=== PATIENT | female | born 1960 ===

== ENCOUNTER 2016-10-18 17:06 | Emergency (ER) | payer MEDICAID ==
[2016-10-18 17:07] VITALS: BMI 38.9
[2016-10-18 17:14] VITALS: RESP 16; TEMP 98.2; O2SAT 98
--- NOTE | 2016-10-18 17:42 | ED PDOC ---
Arrival/HPI - General Chief Complaint: Back Pain Time Seen by Provider: 10/18/16 17:29 Historian: Patient - History of Present Illness Narrative History of Present Illness (Text): 10/18/16 17:38 This 56 yo female with pmh htn, asthma, hyperlipedemia, presents to this ED c/o left lower back pain, associated with urinary frequency x 2 days. Denies trauma, fever, flank pain, urgency hematuria, /GI incontinence, urinary retention, saddle anesthesias, weakness, paresthesias, or vaginal discharge. Time/Duration: Other (2 days) Quality: Aching Context: Home Past Medical History - Provider Review Nursing Documentation Reviewed: Yes - Infectious Disease Hx of Infectious Diseases: None - Tetanus Immunization Tetanus Immunization: Unknown - Cardiac Hx KS: Yes Hx Hypertension: Yes - Pulmonary Hx Respiratory Disorders: Yes Hx Asthma: Yes Hx Bronchitis: Yes - Neurological Hx Neurological Disorder: No Hx Paralysis: No - HEENT Hx HEENT Disorder: Yes (GLASSES) - Renal Hx Renal Disorder: Yes Hx Kidney Stones: Yes - Endocrine/Metabolic Hx Endocrine Disorders: No - Hematological/Oncological Hx Blood Disorders: No - Integumentary Hx Dermatological Disorder: No - Musculoskeletal/Rheumatological Hx Musculoskeletal Disorders: Yes Hx Arthritis: Yes Hx Fractures: Yes (RIGHT ELBOW) - Gastrointestinal Hx Gastrointestinal Disorders: No - Genitourinary/Gynecological Hx Genitourinary Disorders: No - Psychiatric Hx Anxiety: Yes Hx Depression: Yes Hx Substance Use: No - Surgical History Hx Open Reduction Internal Fixation: Yes (RIGHT ELBOW) Hx Tubal Ligation: Yes Other/Comment: LIPOMA BACK - Anesthesia Hx Anesthesia: Yes - Suicidal Assessment Feels Threatened In Home Enviroment: No Family/Social History - Physician Review Nursing Documentation Reviewed: Yes Family/Social History: No Known Family HX Smoking Status: Never Smoked Hx Alcohol Use: No Hx Substance Use: No Hx Substance Use Treatment: No Allergies/Home Meds Allergies/Adverse Reactions: Allergies codeine Allergy (Verified 10/18/16 17:08) ITCHING Home Medications: Home Meds Medication Instructions Recorded Confirmed Risperidone [Risperdal] 2 mg PO DAILY 12/28/11 10/18/16 Valsartan [Diovan] 160 mg PO DAILY 12/28/11 10/18/16 Escitalopram Oxalate [Lexapro] 20 mg PO DAILY 09/13/13 05/03/17 Aspirin [Adult Low Dose Aspirin EC] 81 mg PO DAILY 08/09/15 10/18/16 Simvastatin [Simvastatin] 10 mg PO DAILY 08/09/15 10/18/16 Zolpidem [Ambien] 10 mg PO DAILY 08/09/15 10/18/16 Review of Systems - Review of Systems Constitutional: Normal. absent: Fatigue, Weight Change, Fevers Eyes: Normal ENT: Normal Respiratory: Normal Cardiovascular: Normal Gastrointestinal: Normal Genitourinary Female: Frequency. absent: Dysuria, Hematuria, Urine Output Changes, Vaginal Bleeding, Vaginal Discharge Musculoskeletal: Back Pain Skin: Normal Neurological: Normal Endocrine: Normal Hemo/Lymphatic: Normal Psychiatric: Normal Physical Exam Vital Signs Temp Pulse Resp BP Pulse Ox 10/18/16 18:57 87 16 140/80 98 10/18/16 17:11 98.2 F 90 16 143/82 98 Temperature: Afebrile Blood Pressure: Normal Pulse: Regular Respiratory Rate: Normal Appearance: Positive for: Well-Appearing, Non-Toxic, Comfortable Pain Distress: None Mental Status: Positive for: Alert and Oriented X 3 - Systems Exam Head: Present: Atraumatic, Normocephalic Pupils: Present: PERRL Extroacular Muscles: Present: EOMI Conjunctiva: Present: Normal Mouth: Present: Moist Mucous Membranes Neck: Present: Normal Range of Motion Respiratory/Chest: Present: Clear to Auscultation, Good Air Exchange. No: Respiratory Distress, Accessory Muscle Use Cardiovascular: Present: Regular Rate and Rhythm, Normal S1, S2. No: Murmurs Abdomen: Present: Normal Bowel Sounds. No: Tenderness, Distention, Peritoneal Signs Back: Present: Normal Inspection, Paraspinal Tenderness (Mild le). No: CVA Tenderness, Midline Tenderness, Pain with Leg Raise Upper Extremity: Present: Normal Inspection, Normal ROM, NORMAL PULSES, Neurovascularly Intact, Capillary Refill < 2s. No: Cyanosis, Edema Lower Extremity: Present: Normal Inspection, NORMAL PULSES, Normal ROM. No: Edema, CALF TENDERNESS Neurological: Present: GCS=15, CN II-XII Intact, Speech Normal Skin: Present: Warm, Dry, Normal Color. No: Rashes Psychiatric: Present: Alert, Oriented x 3, Normal Insight, Normal Concentration Medical Decision Making ED Course and Treatment: 10/18/16 18:23 Re-evaluation. Patient feels better. Discussed results and plan with patient who expresses understanding. All questions answered and there is agreement with the plan to discharge home with instructions. Patient stable for discharge. Return if symptoms persist or worsen. Re-evaluation Time: 18:23 Reassessment Condition: Re-examined, Improved - Lab Interpretations Microbiology Results: Microbiology Results 10/18/16 17:50 Urine Urine Culture - Final 10-50,000 CFU/ML. MULTIPLE SPECIES. PROBABLE CONTAMINATION. Lab Results: Lab Results 10/18/16 17:50: Urine Color Yellow, Urine Appearance Sl cloudy, Urine pH 7.0, Ur Specific Kirkman 1.020, Urine Protein Negative, Urine Glucose (UA) Negative, Urine Ketones Negative, Urine Blood Negative, Urine Nitrate Negative, Urine Bilirubin Negative, Urine Urobilinogen 0.2, Ur Leukocyte Esterase Small H, Urine RBC Negative, Urine WBC 2 - 5, Ur Epithelial Cells 6 - 8, Urine Bacteria Few I have reviewed the lab results: Yes Interpretation: Abnormal lab values (UTI) - Medication Orders Current Medication Orders: Discontinued Medications Ibuprofen (Motrin Tab) 400 mg PO STAT STA Stop: 10/18/16 18:13 Last Admin: 10/18/16 18:34 Dose: 400 mg Nitrofurantoin Macrocrystals (Macrobid) 100 mg PO STAT STA Stop: 10/18/16 18:13 Last Admin: 10/18/16 18:34 Dose: 100 mg Disposition/Present on Arrival - Present on Arrival Any Indicators Present on Arrival: No History of DVT/PE: No History of Uncontrolled Diabetes: No Urinary Catheter: No History of Decub. Ulcer: No History Surgical Site Infection Following: None - Disposition Have Diagnosis and Disposition been Completed?: Yes Diagnosis: Acute cystitis Disposition: HOME/ ROUTINE Disposition Time: 18:24 Patient Plan: Discharge Condition: GOOD Discharge Instructions (ExitCare): Urinary Tract Infection in Women (ED) Additional Instructions: Call private doctor for follow up visit in 1-2 days. Take medication as instructed. Return to emergency if symptoms worsen. Prescriptions: Nitrofurantoin Macrocrystals [Macrobid] 100 mg PO BID #14 cap Phenazopyridine HCl [Pyridium] 200 mg PO TID #6 tablet Referrals: Allen Acevedo MD [Primary Care Provider] - Follow up with primary Forms: WORK NOTE
[2016-10-18 18:03] LABS: URINE BILIRUBIN NEGATIVE (NEGATIVE); URINE BLOOD NEGATIVE (NEGATIVE); URINE GLUCOSE (UA) NEGATIVE (NEGATIVE); URINE KETONE NEGATIVE (NEGATIVE); URINE LEUKOCYTE ESTERASE SMALL Leu/uL (NEGATIVE); URINE PROTEIN NEGATIVE mg/dL (<30 mg/dL); URINE UROBILINOGEN 0.2 E.U./dL (<1 E.U./dL)
[2016-10-18 18:04] LABS: URINE APPEARANCE SL CLOUDY (CLEAR); URINE COLOR YELLOW (YELLOW)
[2016-10-18 18:09] LABS: URINE BACTERIA FEW (NEG); URINE RBC NEGATIVE /hpf (0-2)
[2016-10-18 18:57] VITALS: BP 140/80; PULSE 87
== END 2016-10-18 18:57 | disposition home or self-care (01) ==
LOC: ED 17:06
DX: N30.00 Acute cystitis without hematuria (principal); I10 Essential (primary) hypertension

== ENCOUNTER 2018-02-25 16:00 | Emergency (ER) | payer MEDICAID ==
[2018-02-25 16:09] VITALS: BMI 25.7
--- NOTE | 2018-02-25 16:20 | ED PDOC ---
Arrival/HPI - General Time Seen by Provider: 02/25/18 16:11 Historian: Patient - History of Present Illness Narrative History of Present Illness (Text): 02/25/18 16:13 58 y/o female, pmh including htn/hld/asthma, post menopausal, allergic to codeine, c/o chest pain x 2 hours. Pt. has chest pain x 2 hours, sudden onset , associated with nausea and vomiting, radiating to the neck region, no tearing sensation, no coughing, no abdominal pain, no dizziness, no other medical or psychological complaints. Past Medical History - Provider Review Nursing Documentation Reviewed: Yes - Infectious Disease Hx of Infectious Diseases: None - Tetanus Immunization Tetanus Immunization: Unknown - Cardiac Hx AK: Yes Hx Hypertension: Yes - Pulmonary Hx Respiratory Disorders: Yes Hx Asthma: Yes Hx Bronchitis: Yes - Neurological Hx Neurological Disorder: No Hx Paralysis: No - HEENT Hx HEENT Disorder: Yes (GLASSES) - Renal Hx Renal Disorder: Yes Hx Kidney Stones: Yes - Endocrine/Metabolic Hx Endocrine Disorders: No - Hematological/Oncological Hx Blood Disorders: No - Integumentary Hx Dermatological Disorder: No - Musculoskeletal/Rheumatological Hx Musculoskeletal Disorders: Yes Hx Arthritis: Yes Hx Fractures: Yes (RIGHT ELBOW) - Gastrointestinal Hx Gastrointestinal Disorders: No - Genitourinary/Gynecological Hx Genitourinary Disorders: No - Psychiatric Hx Anxiety: Yes Hx Depression: Yes Hx Substance Use: No - Surgical History Hx Open Reduction Internal Fixation: Yes (RIGHT ELBOW) Hx Tubal Ligation: Yes Other/Comment: LIPOMA BACK - Anesthesia Hx Anesthesia: Yes - Suicidal Assessment Feels Threatened In Home Enviroment: No Family/Social History - Physician Review Nursing Documentation Reviewed: Yes Family/Social History: Unknown Family HX Smoking Status: Never Smoked Hx Alcohol Use: No Hx Substance Use: No Hx Substance Use Treatment: No Allergies/Home Meds Allergies/Adverse Reactions: Allergies codeine Allergy (Verified 02/25/18 16:08) ITCHING Home Medications: Home Meds Medication Instructions Recorded Confirmed Risperidone [Risperdal] 2 mg PO DAILY 12/28/11 10/18/16 Escitalopram Oxalate [Lexapro] 20 mg PO DAILY 02/28/13 10/18/16 Aspirin [Adult Low Dose Aspirin EC] 81 mg PO DAILY 08/09/15 10/18/16 Simvastatin 10 mg PO DAILY 08/09/15 10/18/16 Zolpidem [Ambien] 10 mg PO DAILY 08/09/15 10/18/16 Review of Systems - Review of Systems Constitutional: absent: Fatigue, Fevers Eyes: absent: Vision Changes ENT: absent: Hearing Changes Respiratory: absent: SOB, Cough Cardiovascular: Chest Pain Gastrointestinal: Nausea, Vomiting. absent: Abdominal Pain, Diarrhea Musculoskeletal: absent: Arthralgias, Back Pain Skin: absent: Rash, Pruritis Neurological: absent: Headache, Dizziness Psychiatric: absent: Anxiety, Depression, Suicidal Ideation Physical Exam Vital Signs Reviewed: Yes Vital Signs Temp Pulse Resp BP Pulse Ox 02/26/18 14:34 98.5 F 82 20 139/78 99 02/26/18 08:33 98.0 F 81 12 137/65 100 02/26/18 08:17 63 16 137/65 100 02/26/18 05:59 62 18 135/85 100 02/25/18 23:30 71 18 126/68 100 02/25/18 19:42 70 18 136/77 100 02/25/18 17:23 75 20 139/77 100 02/25/18 16:10 98.9 F 74 18 157/79 H 100 Temperature: Afebrile Blood Pressure: Hypertensive Pulse: Regular Respiratory Rate: Normal Appearance: Positive for: Well-Appearing, Non-Toxic, Comfortable Pain Distress: Moderate Mental Status: Positive for: Alert and Oriented X 3 - Systems Exam Head: Present: Atraumatic, Normocephalic Pupils: Present: PERRL Extroacular Muscles: Present: EOMI Conjunctiva: Present: Normal Ears: Present: NORMAL TM, Normal Canal. No: Erythema Mouth: Present: Moist Mucous Membranes Nose (External): Present: Atraumatic. No: Abrasion, Contusion, Laceration Nose (Internal): Present: Normal Inspection, No Active Bleeding. No: Rhinorrhea , Septal Hematoma, Epistaxis Neck: Present: Normal Range of Motion Respiratory/Chest: Present: Clear to Auscultation, Good Air Exchange. No: Respiratory Distress, Accessory Muscle Use Cardiovascular: Present: Regular Rate and Rhythm, Normal S1, S2. No: Murmurs Abdomen: No: Tenderness, Distention, Peritoneal Signs, Rebound, Guarding Back: Present: Normal Inspection. No: CVA Tenderness, Midline Tenderness Upper Extremity: Present: Normal Inspection, Normal ROM, NORMAL PULSES, Neurovascularly Intact, Capillary Refill < 2s, Deformity. No: Cyanosis, Edema Lower Extremity: Present: Normal Inspection, NORMAL PULSES, Normal ROM, Neurovascularly Intact, Capillary Refill < 2 s. No: Edema, CALF TENDERNESS, Tenderness, Swelling, Deformity, Temperature Abnormalties Neurological: Present: GCS=15, CN II-XII Intact, Speech Normal, Motor Func Grossly Intact, Gait Normal, Memory Normal Skin: Present: Warm, Dry, Normal Color. No: Rashes Psychiatric: Present: Alert, Oriented x 3, Normal Insight, Normal Concentration Medical Decision Making ED Course and Treatment: 02/25/18 16:14 -Labs -EKG -Chest xray -IVF/aspirin/pepcid/zofran -Observe and reassess 02/25/18 18:29 -EKG: NSR @ 72 BPM, no ST elevation or depression, chronic T wave inversion on lead III, compared with previous ekg. -Chest xray show no active disease -Gallbladder sonogram show Limited examination due to habitus. Echogenic liver may be seen in setting of hepatic parenchymal disease or fatty infiltration. No gallstones. No gallbladder wall thickening or pericholecystic edema. Negative sonographic Reaves's sign as assessed by the agricultural sales representative. -Labs show no acute findings except potassium 5.2 (no tall t waves, kayaxlate 15gm po ordered) -BNP within normal limit -Troponin is negative for 1st set. -UA ordered and pending result -HEART score is 4 -All labs and radiology results discussed with the patient and family, recommend admission for observation for rule out ACS. -paging hospitalist for admission. 02/25/18 18:37 -I spoke to DR. Alfredo about this case, discussed about the labs/radiology results, agreed to admit this patient and would follow up on any pending labs and radiology studies, will admit the patient. - Lab Interpretations Lab Results: 02/26/18 05:15 02/26/18 05:15 Lab Results 02/26/18 08:30: TSH 3rd Generation 1.88 02/26/18 05:15: Triglycerides 163 H, Cholesterol 187, LDL Cholesterol Direct 103 , HDL Cholesterol 37 02/26/18 05:15: Sodium 142, Potassium 4.2, Chloride 105, Carbon Dioxide 31, Anion Gap 10, BUN 14, Creatinine 0.8, Est GFR ( Amer) > 60, Est GFR (Non- Af Amer) > 60, Random Glucose 95, Calcium 8.9, Phosphorus 3.4, Magnesium 2.2, Total Bilirubin 0.6, AST 34, ALT 29, Alkaline Phosphatase 93, Lactate Dehydrogenase 430, Total Creatine Kinase 59, Troponin I < 0.01, Total Protein 7.1, Albumin 3.8, Globulin 3.3, Albumin/Globulin Ratio 1.1 02/26/18 05:15: WBC 8.4 D, RBC 4.17, Hgb 12.5, Hct 39.4, MCV 94.5, MCH 30.0, MCHC 31.7, RDW 14.1, Plt Count 247, MPV 10.3 02/25/18 22:23: Lactate Dehydrogenase 458, Total Creatine Kinase 51, Troponin I < 0.01 02/25/18 17:05: WBC 11.0 D, RBC 4.03, Hgb 12.2, Hct 38.0, MCV 94.3, MCH 30.3, MCHC 32.1, RDW 13.9, Plt Count 249, MPV 10.7, Gran % 72.6 H, Lymph % (Auto) 19.3 L, Kingman % (Auto) 6.3 H, Eos % (Auto) 1.5, Baso % (Auto) 0.3, Gran # 7.97 H , Lymph # (Auto) 2.1, [place] # (Auto) 0.7 H, Eos # (Auto) 0.2, Baso # (Auto) 0.03 02/25/18 17:05: Sodium 139, Potassium 5.2 H, Chloride 102, Carbon Dioxide 30, Anion Gap 13, BUN 17, Creatinine 0.9, Est GFR ( Amer) > 60, Est GFR (Non- Af Amer) > 60, Random Glucose 153 H, Calcium 9.1, Magnesium 2.0, Total Bilirubin 0.5, AST 42 H, ALT 29, Alkaline Phosphatase 84, Lactate Dehydrogenase 562, Total Creatine Kinase 53, Troponin I < 0.01, NT-Pro-B Natriuret Pep 72.9, Total Protein 6.9, Albumin 3.8, Globulin 3.1, Albumin/Globulin Ratio 1.2, Lipase 73 I have reviewed the lab results: Yes - RAD Interpretation Radiology Orders: 02/25/18 16:21 GALL BLADDER [US] Stat 09/10/18 16:52 CHEST PORTABLE [RAD] Stat Chest xray: no active disease ------ Gallbladder sonogram: Date of service: 02/25/2018 HISTORY: chest/epigastric pain COMPARISON: None available TECHNIQUE: Sonographic evaluation of the right upper quadrant of the abdomen. FINDINGS: Examination markedly limited by habitus. LIVER: Measures 13.1 cm in length. Echogenic liver may be seen in setting of hepatic parenchymal disease or fatty infiltration. No focal hepatic mass identified. Main portal vein appears patent with normal directional flow. No intrahepatic bile duct dilatation. GALLBLADDER: No gallstones. No gallbladder wall thickening or pericholecystic edema. Negative sonographic Reaves's sign as assessed by the agricultural sales representative. COMMON BILE DUCT: Measures 4 mm. PANCREAS: Not well-visualized. RIGHT KIDNEY: Measures 9.7 x 4.0 x 5.2 cm. No obstructing calculus or hydronephrosis identified. AORTA: Limited visualization appears grossly unremarkable. IVC: Limited visualization appears grossly unremarkable. OTHER FINDINGS: None . IMPRESSION: Limited examination due to habitus. Echogenic liver may be seen in setting of hepatic parenchymal disease or fatty infiltration. Take Away Worker: Radiologist - EKG Interpretation EKG Interpretation (Text): 02/25/18 16:29 NSR @ 72 BPM, no ST elevation or depression, chronic T wave inversion on lead III, compared with previous ekg. Interpreted by ED Physician: Yes Type: 12 lead EKG Comparison: Com.w/previous EKG - Medication Orders Current Medication Orders: Discontinued Medications Aspirin (Aspirin) 325 mg PO STAT STA Stop: 02/25/18 16:22 Last Admin: 02/25/18 16:53 Dose: 325 mg Aspirin (Ecotrin) 81 mg PO DAILY [facility] Last Admin: 02/26/18 11:09 Dose: 81 mg Atorvastatin Calcium (Lipitor) 10 mg PO DIN [facility] Enoxaparin Sodium (Lovenox) 40 mg SC DAILY [facility] PRN Reason: Protocol Last Admin: 02/26/18 11:08 Dose: 40 mg Subcutaneous Administrations Document 02/26/18 11:08 SUDO (Rec: 02/26/18 11:08 [id number] Injection Site MAR Injection Site Right Abdomen Charges for Administration # of Subcutaneous Administrations 1 Escitalopram Oxalate (Lexapro) 20 mg PO DAILY [facility] Last Admin: 02/26/18 11:32 Dose: 20 mg Famotidine (Pepcid) 20 mg IVP STAT STA Stop: 02/25/18 18:05 Last Admin: 02/25/18 19:02 Dose: 20 mg IVP Administration Document 02/25/18 19:02 FER (Rec: 02/25/18 19:15 FER [id number]) Charges for Administration # of IVP Administrations 1 Sodium Chloride (Sodium Chloride 0.9%) 1,000 mls @ 100 mls/hr IV .Q10H [facility] Last Admin: 02/26/18 03:00 Dose: 100 mls/hr eMAR Start Stop Document 02/26/18 03:00 AD (Rec: 02/26/18 05:23 AD [id number]) Intravenous Solution Start Date 02/26/18 Start Time 03:00 Ibuprofen (Motrin Tab) 400 mg PO Q6H [facility] Stop: 02/26/18 23:01 Losartan Potassium (Cozaar) 100 mg PO DAILY [facility] Last Admin: 02/26/18 11:08 Dose: 100 mg Nitrofurantoin Macrocrystals (Macrobid) 100 mg PO BID [facility] PRN Reason: Protocol Last Admin: 02/26/18 11:00 Dose: 100 mg Ondansetron HCl (Zofran Inj) 4 mg IVP STAT STA Stop: 02/25/18 18:05 Last Admin: 02/25/18 19:03 Dose: 4 mg IVP Administration Document 02/25/18 19:03 FER (Rec: 02/25/18 19:15 FER [id number]) Charges for Administration # of IVP Administrations 1 Ondansetron HCl (Zofran Inj) 4 mg IVP Q4H PRN PRN Reason: Nausea/Vomiting Pantoprazole Sodium (Protonix Ec Tab) 40 mg PO 0600 [facility] Last Admin: 02/26/18 06:21 Dose: 40 mg Risperidone (Risperdal Tab) 2 mg PO DAILY [facility] Last Admin: 02/26/18 11:32 Dose: 2 mg Sodium Polystyrene Sulfonate (Kayexalate Susp) 15 gm PO STAT STA Stop: 02/25/18 18:04 Last Admin: 02/25/18 19:02 Dose: 15 gm - PA / GLOVE FINISHER / Resident Statement / has reviewed & agrees with the documentation as recorded. Disposition/Present on Arrival - Present on Arrival Any Indicators Present on Arrival: No History of DVT/PE: No History of Uncontrolled Diabetes: No Urinary Catheter: No History of Decub. Ulcer: No History Surgical Site Infection Following: None - Disposition Have Diagnosis and Disposition been Completed?: Yes Diagnosis: Chest pain Disposition: HOME/ ROUTINE Disposition Time: 18:30 Patient Plan: Admission, Observation, Telemetry Condition: STABLE Discharge Instructions (ExitCare): Chest Pain Additional Instructions: Pleas follow up with your PMD within one week of discharge Please follow up with your manager financial within 1-2 weeks of discharge to address your GI issues Please go to nearest emergency department if symptoms recur Prescriptions: Losartan [Cozaar] 100 mg PO DAILY #90 tab Referrals: PCP,NO [Primary Care Provider] - Forms: Let's Talk (Macedonian)
[2018-02-25] MEDS: Sodium Chloride 0.9% 1,000 ML IV SCH (16:55)
[2018-02-25 17:22] LABS: BASO # 0.03 K/mm3 (0.0-2.0); BASO % 0.3 % (0.0-3.0); EOS # 0.2 (0.0-0.7); EOS % 1.5 % (1.5-5.0); GRAN # 7.97 (1.4-6.5); GRAN % 72.6 % (50.0-68.0); HEMOGLOBIN 12.2 g/dL (12.0-16.0); LYMPH # 2.1 (1.2-3.4); LYMPH % 19.3 % (22.0-35.0); MEAN CELL VOLUME 94.3 fl (80.0-105.0); MEAN CORPUSCULAR HEMOGLOBIN 30.3 pg (25.0-35.0); MEAN CORPUSCULAR HGB CONC 32.1 g/dl (31.0-37.0); MEAN PLATELET VOLUME 10.7 fl (7.0-11.0); MONO # 0.7 (0.1-0.6); MONO % 6.3 % (1.0-6.0); RBC 4.03 10^6/uL (3.5-6.1); RED CELL DISTRIBUTION WIDTH 13.9 % (11.5-14.5)
[2018-02-25 17:29] LABS: ALB/GLOB RATIO 1.2 (1.1-1.8); ALBUMIN 3.8 g/dL (3.0-4.8); ALT/SGPT 29 U/L (7-56); AST/SGOT 42 U/L (14-36); BLOOD UREA NITROGEN 17 mg/dL (7-21); CALCIUM 9.1 mg/dL (8.4-10.5); GFR NON-AFRICAN AMERICAN > 60; LIPASE 73 U/L (23-300)
[2018-02-25 17:40] LABS: B-TYPE NATRIURETIC PEPTIDE 72.9 pg/mL (0-450); TROPONIN I < 0.01 ng/mL
[2018-02-25] MEDS ORDERED: Sod Polystyrene Sulf 15 gm/60 ml Susp PO STA (18:03)
--- NOTE | 2018-02-25 18:07 | US ---
Date of service: 02/25/2018 HISTORY: chest/epigastric pain COMPARISON: None available TECHNIQUE: Sonographic evaluation of the right upper quadrant of the abdomen. FINDINGS: Examination markedly limited by habitus. LIVER: Measures 13.1 cm in length. Echogenic liver may be seen in setting of hepatic parenchymal disease or fatty infiltration. No focal hepatic mass identified. Main portal vein appears patent with normal directional flow. No intrahepatic bile duct dilatation. GALLBLADDER: No gallstones. No gallbladder wall thickening or pericholecystic edema. Negative sonographic Reaves's sign as assessed by the dermatologist. COMMON BILE DUCT: Measures 4 mm. PANCREAS: Not well-visualized. RIGHT KIDNEY: Measures 9.7 x 4.0 x 5.2 cm. No obstructing calculus or hydronephrosis identified. AORTA: Limited visualization appears grossly unremarkable. IVC: Limited visualization appears grossly unremarkable. OTHER FINDINGS: None . IMPRESSION: Limited examination due to habitus. Echogenic liver may be seen in setting of hepatic parenchymal disease or fatty infiltration.
--- NOTE | 2018-02-25 18:29 | CARD ---
APPROVED REPORT Date of service: 02/25/2018 EKG Measurement Heart [id number] 130P5 [id number] <Conclusion> Normal sinus rhythm Normal ECG
--- NOTE | 2018-02-25 19:56 | CP.PCM.HP ---
<Viet Collier - Last Filed: 02/25/18 20:57> History of Present Illness - History of Present Illness History of Present Illness: Viet Collier D.O PGY1. Internal Medicine Resident. History and Physical for Dr Arita 58 y/o female with PMH of HTN, HLD, asthma, GERD, hiatal hernia, depression, anxiety presents with 4 hour h/o epigastric pain that extends to the mid chest and up to the throat. Pain is pressure like, 7-8/10, aggrevated after ingestion of fatty food and vinegar and chips, relieved after inducing vomiting. Pain lasted for 15 minutes till relived by vomiting food content, with no blood or bile content. Patient had 4 similar episodes for the past 5 months but did not seek medical advice and pain resolved after vomiting induction. This episode is more severe. Patient admits to having EGD 4 years ago that showed gastritis and hiatal hernia. No h/o H Pylri infection or receiving trearment. Patient c/o dry night cough when sleeps supine with low bed head. Patient have GERD for along time for which she takes pantoprazole prn. She still eats fatty, spicy, acidic foods. Her HTN is well controlled with Valsartan. Asthma is well controlled with nebulizer which she takes twice a week. No history od hosptalization related to asthma or incubation. She also c/o frequent UTI every 6 month for which she takes futantoin. She is currently have an episode of UTI with urinary frequency, urgency, dysuria. Patient denied recent travel or sickness. Patient denied palpitation, SOB, headache, fever, headache, chills, diarrhea, change in bowel movement, hemoptysis, hematemesis, black or tarry stool. Cardiac tress test (2016) negative for ischemic changes 12 point ROS reviewed with pertinent postive as mentioned above. PMH: HTN, HLD, asthma, GERD, hiatal hernia, depression, anxiety PSH: ORIF(R elbow) tubal ligation, lipoma excision on the back Meds: ambien, valsartan, simvastatin, nitrofurantoin, lexapro, ASA, risperidone , pantoprazole ALL: codiene (gets itching) SocHx: denied smoking, alcohol or drug use. eats fatty and spicy food. lives with family Fam Hx: mom had CAD, dad had DM2 Present on Admission - Present on Admission Any Indicators Present on Admission: No Review of Systems - Constitutional Constitutional: absent: Fever, Headache, Night Sweats, Weight Loss, Weakness - EENT Eyes: As Per HPI Nose/Mouth/Throat: As Per HPI. absent: Nasal Congestion, Bleeding Gums, Dry Mouth - Cardiovascular Cardiovascular: absent: Chest Pain at Rest, Leg Edema, Leg Ulcers, Palpitations , Paroxysmal Nocturnal Dyspnea - Respiratory Respiratory: Cough. absent: Dyspnea, Hemoptysis, Wheezing, Snoring, Pain on Inspiration, Chest Congestion - Gastrointestinal Gastrointestinal: Abdominal Pain, Belching, Dyspepsia, Nausea, Vomiting. absent : Dysphagia, Hematemesis, Hematochezia, Loose Stools, Melena - Genitourinary Genitourinary: Dysuria, Pyuria, Urinary Hesitance, Freq UTI - Musculoskeletal Musculoskeletal: absent: Arthralgias, Atrophy, Back Pain - Integumentary Integumentary: absent: Change in Hair, Dry Skin, Photosensitivity, Pruritus, Rash, Skin Pain - Neurological Neurological: absent: Dizziness, Headaches, Paresthesias, Radicular Pain, Syncope, Tingling - Psychiatric Psychiatric: Anxiety, Depression, Mood Swings - Endocrine Endocrine: absent: Change in Body Appearance, Deepening of Voice, Polyphagia, Polyuria - Hematologic/Lymphatic Hematologic: absent: Easy Bleeding, Easy Bruising Past Patient History - Infectious Disease Hx of Infectious Diseases: None - Tetanus Immunizations Tetanus Immunization: Unknown - Past Medical History & Family History Past Medical History?: Yes - Past Social History Smoking Status: Never Smoked - CARDIAC Hx Heart Attack: Yes Hx Hypertension: Yes - PULMONARY Hx Respiratory Disorders: Yes Hx Asthma: Yes Hx Bronchitis: Yes - NEUROLOGICAL Hx Neurological Disorder: No Hx Paralysis: No - HEENT Hx HEENT Problems: Yes (GLASSES) - RENAL Hx Chronic Kidney Disease: Yes Hx Kidney Stones: Yes - ENDOCRINE/METABOLIC Hx Endocrine Disorders: No - HEMATOLOGICAL/ONCOLOGICAL Hx Blood Disorders: No - INTEGUMENTARY Hx Dermatological Problems: No - MUSCULOSKELETAL/RHEUMATOLOGICAL Hx Musculoskeletal Disorders: Yes Hx Arthritis: Yes Hx Fractures: Yes (RIGHT ELBOW) - GASTROINTESTINAL Hx Gastrointestinal Disorders: No - GENITOURINARY/GYNECOLOGICAL Hx Genitourinary Disorders: No - PSYCHIATRIC Hx Anxiety: Yes Hx Depression: Yes Hx Substance Use: No - SURGICAL HISTORY Hx Open Reduction Internal Fixation: Yes (RIGHT ELBOW) Hx Tubal Ligation: Yes Other/Comment: LIPOMA BACK - ANESTHESIA Hx Anesthesia: Yes Meds Allergies/Adverse Reactions: Allergies Allergy/AdvReac Type Severity Reaction Status Date / Time codeine Allergy ITCHING Verified 02/25/18 16:08 Physical Exam - Constitutional Appears: Well - Head Exam Head Exam: ATRAUMATIC, NORMOCEPHALIC - Eye Exam Eye Exam: EOMI, Normal appearance, PERRL Pupil Exam: NORMAL ACCOMODATION, PERRL - ENT Exam ENT Exam: Mucous Membranes Moist, Normal Exam - Respiratory Exam Respiratory Exam: Clear to Auscultation Bilateral, NORMAL BREATHING PATTERN - Cardiovascular Exam Cardiovascular Exam: REGULAR RHYTHM, +S1, +S2 - GI/Abdominal Exam GI & Abdominal Exam: Distended, Normal Bowel Sounds, Soft, Tenderness. absent: Organomegaly, Pulsatile Mass Additional comments: epigastric tenderness. obese abdomen - Extremities Exam Extremities exam: Positive for: normal inspection, pedal pulses present - Back Exam Back exam: NORMAL INSPECTION - Neurological Exam Neurological exam: Alert, CN II-XII Intact, Normal Gait, Oriented x3, Reflexes Normal - Psychiatric Exam Psychiatric exam: Normal Affect, Normal Mood - Skin Skin Exam: Dry, Intact, Normal Color, Warm Results - Vital Signs Recent Vital Signs: Last Vital Signs Temp 98.9 F 02/25/18 16:10 Pulse 70 02/25/18 19:42 Resp 18 02/25/18 19:42 BP 136/77 02/25/18 19:42 Pulse Ox 100 02/25/18 19:42 - Labs Result Diagrams: 02/25/18 17:05 02/25/18 17:05 Assessment & Plan - Assessment and Plan (Free Text) Assessment: 58 y/o female with PMH of HTN, HLD, asthma, GERD, hiatal hernia, depression, anxiety presents with 4 hour h/o epigastric pain that extends to the mid chest and up to the throat. Abd U/S shows no abnormality, EKG shows NSR. Troponin negative x1. Admitted for observation to r/o ASC Plan: Atypical chest pain r/o ACS -EKG: NSR no ST abnormalities, chronic T wave inversion on lead III, compared with previous EKG -Troponin negative X1. continue trending -CXR:no active disease -BNP within normal limit -Repeat EKG in AM -Cardiac stress test (2015) showed no abnormalities -continue ASA -Syptoms are related to spicy, fatty food. resolved by induced vomiting. unliely to be cardiac related Abdomianl pain -h/o GERD. symptoms getting worse with not following dietary changes -Abd U/S: Limited study fatty liver infiltration. No gallbladder wall thickening or pericholecystic edema. Negative sonographic Reaves's sign -EGD (2013) show gastritis. no h/o Hpylori infection -patient to follow up outpatient with GI for possible EGD -continue pantoprazol 40mg daily -Zofran for nausea Asthma -well controlled -O2 prn -Duoneb prn Hyperkalemia -kayexalate give in ED -continue to monitor -CMP in AM Depression/anxiety -continue home meds lexapro, ambien HTN -Monitor BP -Continue home meds valsartan HLD -continue home med simvastatin UTI -h/o frequent UTI -currently on furantoin. continue treating -UA ordered and pending result -Regular diet -GI ppx: pantoprazole, elevate head of bed -DVT ppx: SCD Case reviewed and discussed with attending Dr Juan J Collier, PGY1 <Tom Arita - Last Filed: 02/25/18 22:14> Results - Vital Signs Recent Vital Signs: Last Vital Signs Temp 98.9 F 02/25/18 16:10 Pulse 70 02/25/18 19:42 Resp 18 02/25/18 19:42 BP 136/77 02/25/18 19:42 Pulse Ox 100 02/25/18 19:42 - Labs Result Diagrams: 02/25/18 17:05 02/25/18 17:05 Attending/Attestation - Attestation I have personally seen and examined this patient.: Yes I have fully participated in the care of the patient.: Yes I have reviewed all pertinent clinical information: Yes Notes (Text): Pt seen and examined by me independently. CP most likely secondary to GI etiology. Will trend trop and EKG x3 start pt on daily PPI. Pt counseled on diet and exercise Monitor BMP. c/w home BP meds 02/25/18 22:08
[2018-02-25 22:59] LABS: TROPONIN I < 0.01 ng/mL
[2018-02-26] MEDS: Sodium Chloride 0.9% 1,000 ML IV SCH (03:00)
[2018-02-26 05:37] LABS: HEMOGLOBIN 12.5 g/dL (12.0-16.0); MEAN CELL VOLUME 94.5 fl (80.0-105.0); MEAN CORPUSCULAR HGB CONC 31.7 g/dl (31.0-37.0); MEAN PLATELET VOLUME 10.3 fl (7.0-11.0); RBC 4.17 10^6/uL (3.5-6.1); RED CELL DISTRIBUTION WIDTH 14.1 % (11.5-14.5); WHITE BLOOD COUNT 8.4 10^3/ul (4.5-11.0)
[2018-02-26 05:56] LABS: ALB/GLOB RATIO 1.1 (1.1-1.8); ALBUMIN 3.8 g/dL (3.0-4.8); ALT/SGPT 29 U/L (7-56); AST/SGOT 34 U/L (14-36); BLOOD UREA NITROGEN 14 mg/dL (7-21); CALCIUM 8.9 mg/dL (8.4-10.5); GFR NON-AFRICAN AMERICAN > 60
[2018-02-26] MEDS ORDERED: Pantoprazole 40 mg EC Tab PO SCH (06:00)
[2018-02-26 06:07] LABS: TROPONIN I < 0.01 ng/mL
[2018-02-26 07:48] LABS: HDL CHOLESTEROL 37 mg/dL (29-60)
[2018-02-26 07:58] LABS: LDL CHOLESTEROL 103 mg/dL (0-129)
--- NOTE | 2018-02-26 08:31 | RAD ---
Date of service: 02/25/2018 HISTORY: chest pain COMPARISON: No prior. FINDINGS: LUNGS: No active pulmonary disease. PLEURA: No significant pleural effusion identified, no pneumothorax apparent. CARDIOVASCULAR: Normal. OSSEOUS STRUCTURES: No significant abnormalities. VISUALIZED UPPER ABDOMEN: Normal. OTHER FINDINGS: None. IMPRESSION: No active disease.
[2018-02-26] MEDS ORDERED: Non Formulary Medication (Valsartan [Diovan] 160 MG) PO SCH (10:00)
[2018-02-26] MEDS ORDERED: RISPERIDONE 2 MG PO SCH (10:00)
[2018-02-26] MEDS ORDERED: ESCITALOPRAM OXALATE 20 MG PO SCH (10:00)
[2018-02-26] MEDS ORDERED: Enoxaparin 40 mg Syringe SC SCH (10:00)
--- NOTE | 2018-02-26 10:29 | CARD ---
APPROVED REPORT Date of service: 02/26/2018 EKG Measurement Heart [id number] <Conclusion> Normal sinus rhythm Normal ECG
--- NOTE | 2018-02-26 13:36 | CP.PCM.DIS ---
Provider - Provider Date of Admission: 02/25/2018 Attending physician: Jennifer Alfredo M.D Primary care physician: NO PRIMARY CARE PROVIDER Diagnosis - Discharge Diagnosis (1) Chest pain Status: Acute Hospital Course - Lab Results Lab Results: Most Recent Lab Values WBC 8.4 10^3/ul (4.5-11.0) D 02/26/18 05:15 RBC 4.17 10^6/uL (3.5-6.1) 02/26/18 05:15 Hgb 12.5 g/dL (12.0-16.0) 02/26/18 05:15 Hct 39.4 % (36.0-48.0) 02/26/18 05:15 MCV 94.5 fl (80.0-105.0) 02/26/18 05:15 MCH 30.0 pg (25.0-35.0) 02/26/18 05:15 MCHC 31.7 g/dl (31.0-37.0) 02/26/18 05:15 RDW 14.1 % (11.5-14.5) 02/26/18 05:15 Plt Count 247 10^3/uL (120.0-450.0) 02/26/18 05:15 MPV 10.3 fl (7.0-11.0) 02/26/18 05:15 Gran % 72.6 % (50.0-68.0) H 02/25/18 17:05 Lymph % (Auto) 19.3 % (22.0-35.0) L 02/25/18 17:05 [place] % (Auto) 6.3 % (1.0-6.0) H 02/25/18 17:05 Eos % (Auto) 1.5 % (1.5-5.0) 02/25/18 17:05 Baso % (Auto) 0.3 % (0.0-3.0) 02/25/18 17:05 Gran # 7.97 (1.4-6.5) H 02/25/18 17:05 Lymph # (Auto) 2.1 (1.2-3.4) 02/25/18 17:05 [place] # (Auto) 0.7 (0.1-0.6) H 02/25/18 17:05 Eos # (Auto) 0.2 (0.0-0.7) 02/25/18 17:05 Baso # (Auto) 0.03 K/mm3 (0.0-2.0) 02/25/18 17:05 Sodium 142 mmol/L (132-148) 02/26/18 05:15 Potassium 4.2 mmol/L (3.6-5.0) 02/26/18 05:15 Chloride 105 mmol/L (98-107) 02/26/18 05:15 Carbon Dioxide 31 mmol/L (21-33) 02/26/18 05:15 Anion Gap 10 (10-20) 02/26/18 05:15 BUN 14 mg/dL (7-21) 02/26/18 05:15 Creatinine 0.8 mg/dl (0.7-1.2) 02/26/18 05:15 Est GFR ( Amer) > 60 02/26/18 05:15 Est GFR (Non-Af Amer) > 60 02/26/18 05:15 Random Glucose 95 mg/dL (70-110) 02/26/18 05:15 Calcium 8.9 mg/dL (8.4-10.5) 02/26/18 05:15 Phosphorus 3.4 mg/dL (2.5-4.5) 02/26/18 05:15 Magnesium 2.2 mg/dL (1.7-2.2) 02/26/18 05:15 Total Bilirubin 0.6 mg/dL (0.2-1.3) 02/26/18 05:15 AST 34 U/L (14-36) 02/26/18 05:15 ALT 29 U/L (7-56) 02/26/18 05:15 Alkaline Phosphatase 93 U/L (38-126) 02/26/18 05:15 Lactate Dehydrogenase 430 U/L (333-699) 02/26/18 05:15 Total Creatine Kinase 59 U/L (35-230) 02/26/18 05:15 Troponin I < 0.01 ng/mL 02/26/18 05:15 NT-Pro-B Natriuret Pep 72.9 pg/mL (0-450) 02/25/18 17:05 Total Protein 7.1 g/dL (5.8-8.3) 02/26/18 05:15 Albumin 3.8 g/dL (3.0-4.8) 02/26/18 05:15 Globulin 3.3 gm/dL 02/26/18 05:15 Albumin/Globulin Ratio 1.1 (1.1-1.8) 02/26/18 05:15 Triglycerides 163 mg/dL (35-160) H 02/26/18 05:15 Cholesterol 187 mg/dL (130-200) 02/26/18 05:15 LDL Cholesterol Direct 103 mg/dL (0-129) 02/26/18 05:15 HDL Cholesterol 37 mg/dL (29-60) 02/26/18 05:15 Lipase 73 U/L (23-300) 02/25/18 17:05 TSH 3rd Generation 1.88 mIU/mL (0.46-4.68) 02/26/18 08:30 Discharge Exam - Head Exam Head Exam: ATRAUMATIC, NORMOCEPHALIC - Eye Exam Eye Exam: EOMI, Normal appearance, PERRL Pupil Exam: NORMAL ACCOMODATION, PERRL - ENT Exam ENT Exam: Mucous Membranes Moist, Normal Exam, Normal Oropharynx - Neck Exam Neck exam: Full Rom, Normal Inspection - Respiratory Exam Respiratory Exam: Clear to PA & Lateral, NORMAL BREATHING PATTERN - Cardiovascular Exam Cardiovascular Exam: REGULAR RHYTHM, +S1, +S2 - GI/Abdominal Exam GI & Abdominal Exam: Normal Bowel Sounds, Soft - Extremities Exam Extremities exam: full ROM, pedal pulses present - Back Exam Back exam: NORMAL INSPECTION - Neurological Exam Neurological exam: Alert, CN II-XII Intact, Oriented x3, Reflexes Normal - Psychiatric Exam Psychiatric exam: Normal Affect, Normal Mood - Skin Skin Exam: Dry, Intact, Normal Color Discharge Plan - Discharge Medications Prescriptions: Losartan [Cozaar] 100 mg PO DAILY #90 tab - Follow Up Plan Condition: STABLE Disposition: HOME/ ROUTINE Additional Instructions: Pleas follow up with your PMD within one week of discharge Please follow up with your service technician within 1-2 weeks of discharge to address your GI issues Please go to nearest emergency department if symptoms recur Referrals: PCP,NO [Primary Care Provider] -
--- NOTE | 2018-02-26 14:02 | CON ---
DATE: 02/26/2018 REASON FOR CONSULTATION: Abdominal pain, chest pain, cardiac evaluation. BRIEF CLINICAL HISTORY: This is a 58-year-old obese female, body mass index of 40 kg/m2, history of hypertension, hyperlipidemia, came in with complaint of abdominal pain, chest pain, radiating, which is mild tenderness in epigastrium as well as tenderness in the chest. Denies any dyspnea on exertion, chest pain on exertion. PAST MEDICAL HISTORY: Significant for hypertension, hyperlipidemia. No documented history of coronary artery disease. FAMILY HISTORY: No history of coronary artery disease in the family. SOCIAL HISTORY: Denies any history of alcohol abuse. CURRENT MEDICATIONS: The patient is taking Ambien, valsartan 160 mg daily, simvastatin, Risperdal, Pyridium, nitrofurantoin and Lexapro as well as baby aspirin 81 mg daily. ALLERGIES: CODEINE. REVIEW OF SYSTEMS: As per HPI. PHYSICAL EXAMINATION: VITAL SIGNS: As follows: Height of the patient is 5 feet 2 inches, weight of the patient 220 pounds, body mass index 40.2 kg/m2. Rest of the examination, temperature afebrile, heart rate 81, blood pressure 137/65. HEENT: PERRLA. Extraocular muscles intact. NECK: Supple. No carotid bruit or thyromegaly. CHEST: Clear to auscultation. HEART: S1 and S2 regular. ABDOMEN: Soft. EXTREMITIES: Clubbing and cyanosis negative. LABORATORY DATA: Blood workup as follows: WBC 8.5, hemoglobin 12.9, hematocrit 39.4, platelet count 247. Chemistry shows sodium 140, potassium 4.2, chloride 105, carbon dioxide 31, anion gap of 10, BUN 14, creatinine 0.8. TSH 1.8, triglycerides 163, cholesterol 187, LDL 103, HDL 37. Troponin 0.01, negative. EKG shows normal sinus rhythm. No acute ST-T changes noted. IMPRESSION: This is a 58-year-old female with past medical history significant for hypertension, hyperlipidemia admitted with atypical chest pain, abdominal pain and tenderness in the chest, mild tenderness in the epigastrium and radiation of the pain, chest pain is atypical. So far, no evidence of acute myocardial infarction. The patient is from [place], suggested the patient go back and for risk stratification, I suggest a stress test in [place]. So far, no evidence of acute myocardial infarction, the patient is okay to be discharged. Continue current medications. We will give one dose of Motrin. It is very tenders on the left side of the chest. So far, EKG is pretty benign, no evidence of acute myocardial infarction. Thank you for providing us the opportunity in taking care of the patient, Dasia Parry. Antoine Roblero MD
[2018-02-26 14:37] VITALS: BP 139/78; PULSE 82; RESP 20; TEMP 98.5; O2SAT 99
== END 2018-02-26 14:34 | disposition home or self-care (01) ==
LOC: ED 16:00 → ERH 18:41 → UNDOADMOB 18:41 → ED 02-26 14:34
DX: R07.9 Chest pain, unspecified (principal); E78.5 Hyperlipidemia, unspecified; I10 Essential (primary) hypertension
CPT/HCPCS: 71045; 76705; 80053; 80061; 82550; 83615; 83690; 83735; 83880; 84100; 84443; 84484; 85025; 85027; 93005; 96372; 96374; 96375; 99285; J1650; J2405; J7030